=== PATIENT | male | born 1950 | race Caucasian/White ===

== ENCOUNTER → 2017-05-21 | Outpatient (CLI) | payer MEDICARE ==
--- NOTE | 2017-05-21 10:54 | US ---
EXAMINATION TYPE: US venous doppler duplex LE BI DATE OF EXAM: 05/21/2017 10:44 AM COMPARISON: NONE CLINICAL HISTORY: I82.401,I82.402,M79.661,M79.662 LOWER LEG PAIN,DVT. no prev dvt, diana leg pain SIDE PERFORMED: bilateral TECHNIQUE: The lower extremity deep venous system is examined utilizing real time linear array sonog pati with graded compression, doppler sonography and color-flow sonography. VESSELS IMAGED: External Iliac Vein (EIV) Common Femoral Vein Deep Femoral Vein Greater Saphenous Vein * Femoral Vein Popliteal Vein Small Saphenous Vein * Proximal Calf Veins (* superficial vessels) Some exam limitations with compressions bilaterally due to the calcified deep artery that sits just a nterior to the deep vns. Right Leg: neg for DVT Left Leg: neg for DVT IMPRESSION: No evidence for DVT.
== END | disposition home or self-care (01) ==
LOC: RADUSWWP 10:17
PROVIDERS: ATTEND Orthopaedic Surgery
DX: M79.661 Pain in right lower leg (principal); M79.662 Pain in left lower leg
CPT/HCPCS: 93970

== ENCOUNTER → 2017-11-13 | Outpatient (CLI) | payer MEDICARE ==
--- NOTE | 2017-11-14 08:56 | MM ---
Reason for exam: additional evaluation requested from prior study. Last mammogram was performed 3 years and 1 month ago. History: Patient has history of other cancer at age 57. Family history of breast cancer in brother at age 53. Excisional biopsy of the left breast, 2011. Physical Findings: Nurse did not find any significant physical abnormalities on exam. MG 3D Diag Mammo W/Cad SOHAM Bilateral CC and MLO view(s) were taken. Prior study comparison: October 07, 2014, left breast MG diagnostic mammo LT w CAD. December 10, 2013, CAD bilateral diagnostic mammogram. September 16, 2011, CAD bilateral diagnostic mammogram. There are scattered fibroglandular densities. Moderate bilateral gynecomastia. No significant new findings when compared with previous films. These results were verbally communicated with the patient and result sheet given to the patient on 11/13/17. ASSESSMENT: Negative, BI-RAD 1 RECOMMENDATION: Clinical management. Manage patient on a clinical basis. Any follow up can be determined clinically.
== END | disposition home or self-care (01) ==
LOC: RADMAMWWP 13:40
PROVIDERS: ATTEND Internal Medicine
DX: R92.8 Other abnormal and inconclusive findings on diagnostic imaging of breast (principal)
CPT/HCPCS: 77066; G0279

== ENCOUNTER → 2018-06-09 | Outpatient (CLI) | payer MEDICARE ==
--- NOTE | 2018-06-09 15:46 | XR ---
EXAMINATION TYPE: XR chest 2V DATE OF EXAM: 06/09/2018 COMPARISON: 03/01/2016 HISTORY: Shortness of breath TECHNIQUE: Frontal and lateral views of the chest are obtained. FINDINGS: Scattered senescent parenchymal changes noted. Hyperinflation compatible with COPD. No evidence for infiltrate. No evidence for atelectasis. Heart size is stable. Mediastinal structures are stable and grossly unremarkable. No evidence for hilar prominence. Degenerative changes dorsal spine. IMPRESSION: 1. No evidence for acute pulmonary disease.
== END | disposition home or self-care (01) ==
LOC: RADXRMAIN 15:32
PROVIDERS: ATTEND Internal Medicine Critical Care Medicine
DX: J44.9 Chronic obstructive pulmonary disease, unspecified (principal)
CPT/HCPCS: 71046

== ENCOUNTER → 2019-01-04 | Outpatient (CLI) | payer MEDICARE ==
--- NOTE | 2019-01-04 09:59 | MM ---
Reason for exam: clinical finding. Last mammogram was performed 1 year and 2 months ago. History: Patient has history of other cancer at age 57. Family history of breast cancer in brother at age 53. Benign excisional biopsy of the left breast, 2011. Physical Findings: Nurse did not find any significant physical abnormalities on exam. MG 3D Diag Mammo W/Cad SOHAM Bilateral CC and MLO view(s) were taken. Prior study comparison: November 13, 2017, bilateral MG 3d diag mammo w/cad SOHAM. October 07, 2014, left breast MG diagnostic mammo LT w CAD. There are scattered fibroglandular densities. Finding: Architectural distortion in the upper outer quadrant of the left breast consistent with known excisional biopsy. There is no discrete abnormality. These results were verbally communicated with the patient and result sheet given to the patient on 01/04/19. ASSESSMENT: Benign, BI-RAD 2 RECOMMENDATION: Clinical management of both breasts.
== END | disposition home or self-care (01) ==
LOC: RADMAMWWP 08:49
PROVIDERS: ATTEND Family Medicine
DX: N64.4 Mastodynia (principal); Z80.3 Family history of malignant neoplasm of breast
CPT/HCPCS: 77066; G0279; 77062

== ENCOUNTER → 2019-03-05 | Outpatient (CLI) | payer MEDICARE ==
[2019-03-05 10:18] LABS: Basophils # (A) 0.1 k/uL (0-0.2); Basophils % (A) 1 %; Eosinophils # (A) 0.6 k/uL (0-0.7); Eosinophils % (A) 9 %; HCT 45.4 % (39.0-53.0); HGB 14.6 gm/dL (13.0-17.5); Lymphocytes # (A) 1.1 k/uL (1.0-4.8); Lymphocytes % (A) 15 %; MCHC 32.1 g/dL (31.0-37.0); Mean Platelet Volume 6.8; Monocytes # (A) 0.5 k/uL (0-1.0); Monocytes % (A) 7 %; Neutrophils # (A) 4.6 k/uL (1.3-7.7); Neutrophils % (A) 65 %; Platelet Count 269 k/uL (150-450); RBC 5.22 m/uL (4.30-5.90); RDW 14.4 % (11.5-15.5); WBC 7.1 k/uL (3.8-10.6)
[2019-03-05 17:15] LABS: Vitamin D 25 Hydroxy 71.9 ng/mL (30.0-100.0)
[2019-03-05 17:23] LABS: Albumin 4.1 g/dL (3.80-4.90); Albumin/Globulin Ratio 1.78 (1.60-3.17); Anion Gap 7.6 mmol/L (4.00-12.00); Carbon Dioxide 27.4 mmol/L (21.6-31.8); Globulin 2.3 g/dL (1.6-3.3); LDL Cholesterol,Calculated 61.4 mg/dL (0.0-131.0); Potassium 3.9 mmol/L (3.5-5.5); Total Bilirubin 0.3 mg/dL (0.2-1.2); Total Protein 6.4 g/dL (6.2-8.2); VLDL Calculation 26.6 mg/dL (5.00-40.00)
[2019-03-05 17:29] LABS: T4, Free (Free Thyroxine) 1.2 ng/dL (0.80-1.80)
[2019-03-05 19:59] LABS: Hemoglobin A1C 6.1 % (4.0-6.0)
== END ==
LOC: LABWHC1 09:34
PROVIDERS: ATTEND Nurse Practitioner Adult Health
DX: I10 Essential (primary) hypertension (principal); E55.9 Vitamin D deficiency, unspecified; E78.5 Hyperlipidemia, unspecified; E03.9 Hypothyroidism, unspecified; E11.42 Type 2 diabetes mellitus with diabetic polyneuropathy
CPT/HCPCS: 36415; 80053; 80061; 82043; 82306; 82570; 82607; 83036; 84439; 84443; 85025

== ENCOUNTER 2019-08-16 18:05 | Emergency (ER) | payer MEDICARE ==
[2019-08-16] MEDS ORDERED: guaiFENesin-DM 600/30MG 1 EACH TAB.ER.12H PO STA (18:33)
[2019-08-16] MEDS ORDERED: methylPREDNISolone SOD SUCCI 125 MG/2 ML VIAL IM ONE (18:33)
--- NOTE | 2019-08-16 19:14 | ED ---
URI HPI - General Chief Complaint: Upper Respiratory Infection Stated Complaint: congestion/sick-3 weeks Time Seen by Provider: 08/16/19 18:22 Source: patient Mode of arrival: ambulatory Limitations: no limitations - History of Present Illness Initial Comments: 68-year-old male patient with past medical history significant for COPD presents to the emergency department today for evaluation of persistent cough. Patient states that he developed upper respiratory symptoms a couple of weeks ago including sore throat, nasal congestion, and cough. States that his other symptoms resolved however the cough has persisted. Patient states he is coughing up clear sputum. States that when he has coughing episodes he becomes short of breath. Denies any hemoptysis with this. Denies any fever or chills. Patient states he did see someone at urgent care who gave him a prescription for antibiotics and inhaled steroid. States he did one breathing treatment today at home. He denies any current shortness of breath, chest pain, fever, or chills. Patient denies any recent rash, abdominal pain, nausea, vomiting, diarrhea, constipation, back pain, numbness, tingling, dizziness, weakness, hematuria, dysuria, urinary urgency, urinary frequency, headache, visual changes, or any other complaints. - Related Data Home Medications Medication Instructions Recorded Confirmed Aspirin 81 mg PO DAILY 11/28/14 08/16/19 Atorvastatin [Lipitor] 20 mg PO HS 11/28/14 08/16/19 Zolpidem [Ambien] 10 mg PO HS PRN 11/28/14 08/16/19 Albuterol Inhaler [Ventolin Hfa 1 - 2 puff INHALATION RT-Q6H PRN 08/16/19 08/16/19 Inhaler] Albuterol Nebulized [Ventolin 2.5 mg INHALATION RT-Q6H PRN 08/16/19 08/16/19 Nebulized] Beclomethasone Dipropionate [Qvar 2 puff INHALATION RT-BID 08/16/19 08/16/19 40 mcg Redihaler] Doxycycline Hyclate [Vibramycin] 100 mg PO BID 08/16/19 08/16/19 Gabapentin [Neurontin] 300 mg PO TID 08/16/19 08/16/19 Hydrochlorothiazide 12.5 mg PO DAILY 08/16/19 08/16/19 Hydrocodone/Acetaminophen [[place] 1 tab PO Q6H PRN 08/16/19 08/16/19 10-325] Ketoconazole 2% Cream [Nizoral 2%] 1 applic TOPICAL DAILY 08/16/19 08/16/19 Levothyroxine Sodium [Synthroid] 100 mcg PO DAILY 08/16/19 08/16/19 Losartan [Cozaar] 25 mg PO DAILY 08/16/19 08/16/19 Umeclidinium Brm/Vilanterol Tr 1 puff INHALATION RT-DAILY 08/16/19 08/16/19 [Anoro Ellipta 62.5-25 Mcg INH] rOPINIRole HCL [Requip] 1 mg PO HS 08/16/19 08/16/19 Previous Rx's Medication Instructions Recorded Levofloxacin [Levaquin] 750 mg PO DAILY #7 tab 08/16/19 guaiFENesin-DM 600/30MG [Mucinex 1 each PO Q12HR #10 tab.er.12h 08/16/19 Dm] predniSONE 50 mg PO DAILY #5 tablet 08/16/19 Allergies Allergy/AdvReac Type Severity Reaction Status Date / Time No Known Allergies Allergy Verified 08/16/19 18:51 Review of Systems ROS Statement: Those systems with pertinent positive or pertinent negative responses have been documented in the HPI. ROS Other: All systems not noted in ROS Statement are negative. 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 PAYTON. CURRENTLY ON ANTIBIOTICS. History of Any Multi-Drug Resistant Organisms: None Reported Past Surgical History: Breast Surgery, Orthopedic Surgery Additional Past Surgical History / Comment(s): LT FEMORAL BYPASS, AORTAGRAM WITH RUNOFF BLE,TUMOR EXCISED FROM PAROTID GLAND, LT LUNG THORACOTOMY,BILAT KNEE SURGERY,BREAST BIOPSY, COLONOSCOPY, I & D LT AXILLARY ABSCESS 01/2014, recent cataract surgery November Past Anesthesia/Blood Transfusion Reactions: Previous Problems w/ Anesthesia Additional Past Anesthesia/Blood Transfusion Reaction / Comment(s): difficulty waking up once after surgery Past Psychological History: No Psychological Hx Reported Smoking Status: Former smoker General Exam Limitations: no limitations General appearance: alert, in no apparent distress, other (This is a well- developed, well-nourished adult male patient in no acute distress. Vital signs upon presentation are temperature 98.1F, pulse 66, respirations 20, blood pressure 164/75, pulse ox 93% on room air.) Eye exam: Present: normal appearance, PERRL, EOMI. Absent: scleral icterus, conjunctival injection, periorbital swelling ENT exam: Present: normal exam, normal oropharynx, mucous membranes moist, TM's normal bilaterally Respiratory exam: Present: normal lung sounds bilaterally. Absent: respiratory distress, wheezes, rales, rhonchi, stridor Cardiovascular Exam: Present: regular rate, normal rhythm, normal heart sounds. Absent: systolic murmur, diastolic murmur, rubs, gallop, clicks Neurological exam: Present: alert, oriented X3, CN II-XII intact Psychiatric exam: Present: normal affect, normal mood Skin exam: Present: warm, dry, intact, normal color. Absent: rash Course Vital Signs 08/16/19 08/16/19 18:15 20:42 Temperature 98.1 F 97.9 F Pulse Rate 66 57 L Respiratory 20 18 Rate Blood Pressure 164/75 175/85 O2 Sat by Pulse 93 L 94 L Oximetry Medical Decision Making - Medical Decision Making 68-year-old male patient presents to the emergency department today for evaluation of cough and congestion. Patient has been taking doxycycline. Physical examination reveals clear equal lung sounds. Congested cough during exam. X-ray of the chest did reveal lingular infiltrate. He is 93% on room air. Patient was given IM dose of Solu-Medrol here in the emergency department as well as Mucinex. Upon reevaluation patient is resting comfortably with no respiratory distress. I did discuss findings and results with the patient. Did offer admission for IV antibiotics due to failed outpatient treatment. Patient declines requesting outpatient treatment first. We will switch his antibiotic to Levaquin. We'll give prescription for steroids. He is instructed take his home breathing treatments every 4 hours, he does have a rescue inhaler for when he is traveling. He is instructed to follow-up with his primary care physician for recheck in 1-2 days. Return parameters were discussed in great detail. He is to maintain low threshold for return. Both patient and agree with this plan. - Radiology Data Radiology results: report reviewed, image reviewed Two-view x-ray of the chest is obtained. Report was reviewed in its entirety. Impression by Dr. Olivera shows lingular infiltrate. Disposition Clinical Impression: Pneumonia Disposition: HOME SELF-CARE Condition: Good Instructions (If sedation given, give patient instructions): Pneumonia (ED) Additional Instructions: Complete antibiotic and steroid prescription in full. Do home breathing treatments every 4 hours. Take mucinex as needed for symptom relief. Follow up with your primary care physician for recheck in 1-2 days. Return to the emergency department immediately for any new, worsening, or concerning symptoms. Prescriptions: Levofloxacin [Levaquin] 750 mg PO DAILY #7 tab guaiFENesin-DM 600/30MG [Mucinex Dm] 1 each PO Q12HR #10 tab.er.12h predniSONE 50 mg PO DAILY #5 tablet Is patient prescribed a controlled substance at d/c from ED?: No Referrals: None,Stated [Primary Care Provider] - 1-2 days Time of Disposition: 20:45
--- NOTE | 2019-08-16 20:09 | XR ---
EXAMINATION TYPE: XR chest 2V DATE OF EXAM: 08/16/2019 COMPARISON: 06/09/2018 INDICATION: Cough and congestion TECHNIQUE: Frontal and lateral views of the chest are obtained. FINDINGS: The heart size is normal. The pulmonary vasculature is normal. Lingular infiltrate is present. Correlate for pneumonia.. IMPRESSION: 1. Lingular infiltrate. Correlate for pneumonia.
[2019-08-16] MEDS ORDERED: LEVOFLOXACIN 750 MG TAB PO STA (20:39)
[2019-08-16 20:45] VITALS: BP 175/85; PULSE 57; RESP 18; TEMP 97.9
== END 2019-08-16 20:56 | disposition home or self-care (01) ==
LOC: EC 18:05
DX: J18.9 Pneumonia, unspecified organism (principal); E11.9 Type 2 diabetes mellitus without complications; E78.5 Hyperlipidemia, unspecified; E07.9 Disorder of thyroid, unspecified; Z79.82 Long term (current) use of aspirin; Z79.899 Other long term (current) drug therapy; Z79.890 Hormone replacement therapy; Z85.21 Personal history of malignant neoplasm of larynx; Z92.21 Personal history of antineoplastic chemotherapy; Z92.3 Personal history of irradiation; Z98.890 Other specified postprocedural states; Z87.09 Personal history of other diseases of the respiratory system; Z87.891 Personal history of nicotine dependence
CPT/HCPCS: 71046; 96372; 99283; J2930

== ENCOUNTER → 2019-10-18 | Outpatient (CLI) | payer MEDICARE ==
[2019-10-18 12:14] LABS: Basophils # (A) 0.1 k/uL (0-0.2); Basophils % (A) 1 %; Eosinophils # (A) 0.7 k/uL (0-0.7); Eosinophils % (A) 9 %; HGB 15.5 gm/dL (13.0-17.5); Lymphocytes # (A) 1.4 k/uL (1.0-4.8); Lymphocytes % (A) 19 %; MCHC 33.1 g/dL (31.0-37.0); MCV 90.7 fL (80.0-100.0); Mean Platelet Volume 7.3; Monocytes # (A) 0.6 k/uL (0-1.0); Monocytes % (A) 8 %; Neutrophils # (A) 4.6 k/uL (1.3-7.7); Neutrophils % (A) 61 %; Platelet Count 249 k/uL (150-450); RBC 5.18 m/uL (4.30-5.90); RDW 13.3 % (11.5-15.5); WBC 7.5 k/uL (3.8-10.6)
[2019-10-18 12:48] LABS: Erythrocyte Sedimentation Rate 2 mm/hr (0-15)
[2019-10-18 17:10] LABS: ALT 15 U/L (10-49); AST 17 U/L (14-35); African American GFR (CKD) 89.9 (60.0-200.0); Albumin/Globulin Ratio 1.95 (1.60-3.17); Alkaline Phosphatase 60 U/L (41-126); C Reactive Protein <0.4 mg/dL (0.0-0.8); Calcium 9.7 mg/dL (8.7-10.3); Carbon Dioxide 28.8 mmol/L (21.6-31.8); Chloride 106 mmol/L (96-109); Globulin 2.1 g/dL (1.6-3.3); Glucose 94 mg/dL (70-110); Non-African American GFR(CKD) 77.5 (60.0-200.0); Potassium 4.5 mmol/L (3.5-5.5); Sodium 138 mmol/L (135-145); Total Bilirubin 0.5 mg/dL (0.3-1.2); Total Protein 6.2 g/dL (6.2-8.2)
[2019-10-18 18:14] LABS: Hemoglobin A1C 5.9 % (4.0-6.0)
== END | disposition home or self-care (01) ==
LOC: LABWHC1 11:06
PROVIDERS: ATTEND Internal Medicine Infectious Disease
DX: L73.2 Hidradenitis suppurativa (principal)
CPT/HCPCS: 36415; 80053; 83036; 84134; 85025; 85652; 86140

== ENCOUNTER → 2019-12-09 | Outpatient (CLI) | payer MEDICARE ==
[2019-12-09 14:42] LABS: Basophils # (A) 0.1 k/uL (0-0.2); Basophils % (A) 2 %; Eosinophils # (A) 0.4 k/uL (0-0.7); Eosinophils % (A) 6 %; HCT 52.7 % (39.0-53.0); HGB 16.8 gm/dL (13.0-17.5); Lymphocytes # (A) 1.4 k/uL (1.0-4.8); Lymphocytes % (A) 20 %; MCH 29.7 pg (25.0-35.0); MCHC 31.9 g/dL (31.0-37.0); MCV 93.3 fL (80.0-100.0); Mean Platelet Volume 7.9; Monocytes # (A) 0.5 k/uL (0-1.0); Monocytes % (A) 7 %; Neutrophils # (A) 4.3 k/uL (1.3-7.7); Neutrophils % (A) 62 %; Platelet Count 225 k/uL (150-450); RBC 5.64 m/uL (4.30-5.90)
[2019-12-09 14:50] LABS: INR 1.2 (<1.2); Partial Thromboplastin Time 23.6 sec (22.0-30.0); Prothrombin Time 11.7 sec (9.0-12.0)
[2019-12-09 15:40] LABS: Appearance,Urine Clear (Clear); Bilirubin,Urine Negative (Negative); Blood,Urine Negative (Negative); Color,Urine Yellow; Glucose,Urine (UA) Negative (Negative); Ketones,Urine Negative (Negative); Leukocyte Esterase,Urine Negative (Negative); Nitrite,Urine Negative (Negative); Protein,Urine Negative (Negative); Specific Gravity,Urine 1.015 (1.001-1.035); Urobilinogen,Urine <2.0 mg/dL (<2.0)
[2019-12-09 18:33] LABS: African American GFR (CKD) 89.2 (60.0-200.0); Albumin 4.2 g/dL (3.80-4.90); Albumin/Globulin Ratio 1.75 (1.60-3.17); Anion Gap 0.9 mmol/L (4.00-12.00); Calcium 9.3 mg/dL (8.7-10.3); Carbon Dioxide 28.1 mmol/L (21.6-31.8); Globulin 2.4 g/dL (1.6-3.3); Potassium 4.4 mmol/L (3.5-5.5); Total Bilirubin 0.7 mg/dL (0.2-1.2); Total Protein 6.6 g/dL (6.2-8.2)
== END | disposition home or self-care (01) ==
LOC: LABWHC1 13:53
PROVIDERS: ATTEND Family Medicine
DX: Z01.818 Encounter for other preprocedural examination (principal)
CPT/HCPCS: 36415; 80053; 81003; 85025; 85610; 85730

== ENCOUNTER → 2020-10-05 | Outpatient (CLI) | payer MEDICARE ==
[2020-10-05 08:09] LABS: African American GFR (CKD) >90 (>60 ml/min/1.73 sqM); Blood Urea Nitrogen 24 mg/dL (9-20); Non-African American GFR(CKD) 87 (>60 ml/min/1.73 sqM)
--- NOTE | 2020-10-05 08:12 | US ---
EXAMINATION TYPE: US duplex aorta DATE OF EXAM: 10/05/2020 COMPARISON: NONE CLINICAL HISTORY: R04.2 Hemoptysis, Z13.6 Screening for AAA. HTN- on meds. EXAM MEASUREMENTS: Abdominal Aorta: Proximal: 2.8 x 2.3 cm Mid: 2.3 x 2.7 transverse cm Distal: 2.4 x 2.1 cm Bifurcation: Right- 1.1 x 1.1 cm Left- 1.1 x 0.9 cm No AAA visualized at time of scan. IMPRESSION: 1. Mid abdominal aorta has a transverse dimension of 2.7 cm is mildly prominent. No AP fusiform promi nence or aneurysm is evident.
--- NOTE | 2020-10-05 10:33 | CT ---
EXAMINATION TYPE: CT chest w con DATE OF EXAM: 10/05/2020 COMPARISON: Chest CT August 24, 2015 HISTORY: Hemoptysis CT DLP: 670.3 mGycm. Automated Exposure Control for Dose Reduction was Utilized. TECHNIQUE: CT scan of the thorax is performed following with IV Contrast, patient injected with 100 mL of Isovue 300. FINDINGS: LUNGS: Rhqa-of-wvvzpvmu underlying emphysematous changes greatest in the upper lungs is redemonstrate d. Focal scarring slightly thickened in the anterior left mid to lower lung axial images 36 through 4 0 is unchanged from prior study. New Dependent atelectasis left greater than right lower lungs. Patc hy medial right basilar reticulation and fibrosis right middle lobe adjacent to heart border is again seen. New focal 8 x 5mm posterior superior right lower lobe nodule or pleural nodule/plaque axial im age 21. No pleural effusion or pneumothorax seen bilaterally. MEDIASTINUM: There are stable prominent bilateral hilar lymph nodes. No new greater than 1 cm mediast inal lymph nodes. No pericardial effusion is seen. Heart size upper limits of normal. Moderate to s evere three-vessel coronary artery calcification and/or stents. Correlate clinically. No thoracic aor tic aneurysm. OTHER: Subareolar flame-shaped gynecomastia redemonstrated. Mild calcified plaque of the aorta extend s into branch vessels. Retroaortic left renal vein which is normal variant. Mild multilevel spurring in the spine. IMPRESSION: Ucfy-rl-luyssrvq emphysematous change with scattered fibrotic change. 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 Short-term CT fo llow-up in 6 months time is advised to reassess. No thoracic aortic aneurysm. No acute findings are e vident.
== END | disposition home or self-care (01) ==
LOC: RADUSWWP 07:02
PROVIDERS: ATTEND Family Medicine
DX: Z13.6 Encounter for screening for cardiovascular disorders (principal); J43.9 Emphysema, unspecified; R91.1 Solitary pulmonary nodule; R04.2 Hemoptysis
CPT/HCPCS: 82565; 84520; 93979; 71260; 36415; Q9967

== ENCOUNTER → 2020-12-22 | Outpatient (CLI) | payer MEDICARE ==
[2020-12-22 23:21] LABS: Basophils # (A) 0.06 X 10*3/uL (0.00-0.10); Basophils % (A) 0.8 %; Eosinophils # (A) 0.68 X 10*3/uL (0.04-0.35); Eosinophils % (A) 9.6 %; HCT 51.2 % (39.6-50.0); HGB 16.5 g/dL (13.0-17.0); Lymphocytes # (A) 1.06 X 10*3/uL (0.90-5.00); MCH 30.2 pg (27.0-32.0); MCHC 32.2 g/dL (32.0-37.0); MCV 93.8 fL (80.0-97.0); Mean Platelet Volume 10.7 fL (9.5-12.2); Monocytes # (A) 0.72 X 10*3/uL (0.20-1.00); Monocytes % (A) 10.2 %; Neutrophils # (A) 4.54 X 10*3/uL (1.80-7.70); Neutrophils % (A) 64.1 %; Platelet Count 179 X 10*3/uL (140-440); RBC 5.46 X 10*6/uL (4.40-5.60); RDW 13.1 % (11.5-14.5); WBC 7.08 X 10*3/uL (4.50-10.00)
[2020-12-23 02:02] LABS: African American GFR (CKD) 100.6 (60.0-200.0); Albumin 4.3 g/dL (3.80-4.90); Albumin/Globulin Ratio 1.79 (1.60-3.17); Anion Gap 9.9 mmol/L (4.00-12.00); BUN/Creat Ratio 21.11 Ratio (12.00-20.00); Calcium 8.9 mg/dL (8.7-10.3); Carbon Dioxide 25.1 mmol/L (21.6-31.8); Chol/HDL Ratio 3.3; Globulin 2.4 g/dL (1.6-3.3); LDL Cholesterol,Calculated 75.6 mg/dL (0.0-131.0); Non-African American GFR(CKD) 86.8 (60.0-200.0); Potassium 4.4 mmol/L (3.5-5.5); Total Bilirubin 0.6 mg/dL (0.2-1.2); Total Protein 6.7 g/dL (6.2-8.2); VLDL Calculation 23.4 mg/dL (5.00-40.00)
== END | disposition home or self-care (01) ==
LOC: LABWHC1 12:38
PROVIDERS: ATTEND Family Medicine
DX: E11.9 Type 2 diabetes mellitus without complications (principal); I10 Essential (primary) hypertension; M75.02 Adhesive capsulitis of left shoulder; G89.29 Other chronic pain
CPT/HCPCS: 36415; 80053; 80061; 83036; 84443; 85025

== ENCOUNTER → 2021-10-12 | Outpatient (CLI) | payer MEDICARE ==
[2021-10-12 14:38] LABS: African American GFR (CKD) >90 (>60 ml/min/1.73 sqM); Blood Urea Nitrogen 16 mg/dL (9-20); Non-African American GFR(CKD) >90 (>60 ml/min/1.73 sqM)
--- NOTE | 2021-10-14 11:43 | CT ---
EXAMINATION TYPE: CT chest w con CT DLP: 924.7 mGycm, Automated exposure control for dose reduction was used. DATE OF EXAM: 10/12/2021 2:58 PM COMPARISON: CT 10/05/2020. CLINICAL INDICATION:Male, 70 years old with history of R91.1 Lung nodule, h/o lung nodule TECHNIQUE: Multiple axial images were obtained through the chest following the administration of 100 cc of Isovue 300. FINDINGS: LUNGS/ PLEURA: Centrilobular emphysematous changes are moderate. The upper lung posterior pulmonary n odule 8 x 5 mm is stable. A similar 5 mm pulmonary nodule on image 40 the anterior right upper lobe i s present. Similar thickening adjacent to the major fissure on the left likely representing atelectas is/scarring. Excessive fissures are noted within the left upper and right lower lung. There is an inc omplete minor fissure noted. AIRWAY: Patent and unremarkable.. HEART: Prominent for size with three-vessel coronary artery atherosclerosis. MEDIASTINUM: No gross evidence of adenopathy. VASCULATURE: No aortic aneurysm. MUSCULOSKELETAL: Moderate disc degeneration changes are present throughout the thoracolumbar spine. SOFT TISSUES/LYMPH NODES: Unremarkable. LOWER NECK: No significant findings. UPPER ABDOMEN: Is present. IMPRESSION: 1.Moderate emphysematous. 2. Stable 8 x 5 mm and 5 mm upper lobe nodules. Consider the annual lungs cancer screening program if patient meets criteria. 3. Moderate Three-vessel coronary artery atherosclerosis. Consider CT calcium score.
== END | disposition home or self-care (01) ==
LOC: RADCTMAIN 13:47
PROVIDERS: ATTEND Internal Medicine Critical Care Medicine
DX: J43.9 Emphysema, unspecified (principal); R91.8 Other nonspecific abnormal finding of lung field; I25.10 Atherosclerotic heart disease of native coronary artery without angina pectoris
CPT/HCPCS: 82565; 84520; 71260; 36415; Q9967

== ENCOUNTER → 2022-09-05 | Outpatient (CLI) | payer MEDICARE ==
--- NOTE | 2022-09-06 07:41 | MM ---
Reason for Exam: Screening (asymptomatic). Last mammogram was performed 3 year(s) and 8 month(s) ago. Patient History: Other cancer, age 57. 2012, Benign Excisional Biopsy on the left side. Brother had breast cancer, age 53. Prior Study Comparison: 10/07/2014 Left Diagnostic Mammogram, [facility]. 11/13/2017 Bilateral Diagnostic Mammogram, [facility]. 01/04/2019 Bilateral Diagnostic Mammogram, [facility]. Tissue Density: There are scattered fibroglandular densities. Findings: Analyzed By CAD. There is no suspicious group of microcalcifications or new suspicious mass in either breast. Overall Assessment: Negative, BI-RAD 1 Management: Screening Mammogram of both breasts in 1 year. A clinical breast exam by your physician is recommended on an annual basis and results should be correlated with mammographic findings. Electronically signed and approved by: Kg Wisdom M.D. Radiologis
== END | disposition home or self-care (01) ==
LOC: RADMAMWWP 14:34
PROVIDERS: ATTEND Family Medicine
DX: Z12.31 Encounter for screening mammogram for malignant neoplasm of breast (principal); Z80.3 Family history of malignant neoplasm of breast
CPT/HCPCS: 77063; 77067

== ENCOUNTER 2022-11-19 12:36 | Day surgery (SDC) | payer MEDICARE ==
[2022-11-14 16:05] VITALS: BMI 40.7
[~2022-11-19 12:36] MED LIST: LACTATED RINGERS 1,000 ML IV SCH
[2022-11-19 13:06] LABS: Glucose,Whole Blood 112 mg/dL (70-110)
[2022-11-19] MEDS ORDERED: MIDAZOLAM 2 MG/2 ML VIAL ONE (13:08)
[2022-11-19] MEDS ORDERED: ROPIVACAINE 5 MG/ML 20 ML AMPULE ONE (13:08)
[2022-11-19] MEDS ORDERED: methylPREDNISolone ACETATE 40 MG/ML 1 ML VIAL ONE (13:08)
[2022-11-19] MEDS ORDERED: fentaNYL (PF) 50 MCG/ML 2 ML AMP ONE (13:08)
[2022-11-19 13:10] VITALS: TEMP 97
[2022-11-19] MEDS ORDERED: IV FLUID CONTINUATION 900 ML IV ONE (13:37)
--- NOTE | 2022-11-19 13:39 | P.PCN ---
Date of Procedure: 11/19/22 Procedure(s) Performed: Procedure= right iliopsoas bursa steroid injection under ultrasound guidance Preoperative diagnosis= 1-bilateral iliopsoas bursitis. Postoperative diagnosis=Same as preop Diagnosis . Complication = none Condition= stable Anesthesia= moderate sedation with intravenous Versed 1 mg , and fentanyl 50 micrograms . Sedation start time: 1319 Sedation end time : 1333 Indication for the procedure= patient complaining of severe bilateral hip pain, and he is scheduled for bilateral iliopsoas bursa steroid injection, because of risk of the weakness after the block and discussed with the patient the option of doing right side injection will evaluate the response in the future we can do the left side psoas injection Description of the procedure= procedure risk and benefits discussed with the patient, including but not limited, risk of infection and bleeding, and ALLERGIC reaction to the medication and not complete pain relief and patient agreed with the preceding patient taken to the operating room, placed in supine position or standard monitors applied to the patient then after induction of anesthesia back prepped with chlorhexidine 3 times , then under sterile technique using ultrasound guidance, and using 21-gauge [place] , 5 inch needle, advanced under ultrasound in plane technique, and needle placed lateral to the femoral nerve at the location of the right iliopsoas muscle, at the location of the bursae then after negative aspiration total of 10 ML of ropivacaine 0.5% mixed with 10 ML of preservative-free normal saline, total volume was 20 mL mixed with the 40 mg of Depo-Medrol injected after negative aspiration patient tolerated the procedure well without any complications, and he will follow up in the pain clinic in 2 weeks for evaluation
[2022-11-19 13:43] VITALS: RESP 16
[2022-11-19 14:03] VITALS: BP 105/69; PULSE 58
== END 2022-11-19 14:07 | disposition home or self-care (01) ==
LOC: ORPAIN 12:36
PROVIDERS: ATTEND Specialist
DX: M70.71 Other bursitis of hip, right hip (principal); M70.72 Other bursitis of hip, left hip
CPT/HCPCS: 99152

== ENCOUNTER → 2023-09-16 | Outpatient (CLI) | payer MEDICARE ==
--- NOTE | 2023-09-18 00:05 | MM ---
Reason for Exam: Screening (asymptomatic). Last screening mammogram was performed 12 month(s) ago. Patient History: Other cancer, age 57. 2012, Benign Excisional Biopsy on the left side. Brother had breast cancer, age 53. Prior Study Comparison: 11/13/2017 Bilateral Diagnostic Mammogram, [facility]. 01/04/2019 Bilateral Diagnostic Mammogram, [facility]. 09/05/2022 Bilateral MG 3D screening mammo w/cad, [facility]. Tissue Density: There are scattered fibroglandular densities. Findings: Analyzed By CAD. There is chronic nodularity on the left. There is no suspicious group of microcalcifications or new suspicious mass in either breast. Overall Assessment: Benign, BI-RAD 2 Management: Screening Mammogram of both breasts in 1 year. . Patient should continue monthly self-breast exams. A clinical breast exam by your physician is recommended on an annual basis. This exam should not preclude additional follow-up of suspicious palpable abnormalities. Electronically signed and approved by: Nilda Thompson M.D. Radiologist
== END | disposition home or self-care (01) ==
LOC: RADMAMWWP 15:46
PROVIDERS: ATTEND Family Medicine
DX: Z12.31 Encounter for screening mammogram for malignant neoplasm of breast (principal); Z80.3 Family history of malignant neoplasm of breast
CPT/HCPCS: 77063; 77067

== ENCOUNTER 2023-10-23 13:40 | Emergency (ER) | payer MEDICARE ==
--- NOTE | 2023-10-23 16:11 | ED ---
General Adult HPI <Jimmie Odonnell - Last Filed: 10/23/23 16:11> <Marylin Sullivan - Last Filed: 10/24/23 05:18> - General Stated complaint: vomiting Time Seen by Provider: 10/23/23 16:10 - History of Present Illness Initial comments: 72-year-old male presenting to the ED with a chief complaint of upper respiratory symptoms. Patient states the past few days has had some cough, congestion, vomiting, diarrhea. Notes sick contact with his who has similar symptoms. (Jimmie Odonnell) 72-year-old male presenting with chief complaint of cough and shortness of breath. Patient states that since October 19 he has been experiencing cough, congestion, vomiting, diarrhea. His has similar symptoms as well. States that his nausea and vomiting has improved but he is still experiencing a cough and shortness of breath. Patient is a previous smoker. No chest pain. No fevers. No current abdominal pain. (Marylin Sullivan) - Related Data Home Medications Medication Instructions Recorded Confirmed Aspirin 81 mg PO DAILY 11/28/14 12/11/22 Atorvastatin [Lipitor] 20 mg PO HS 11/28/14 12/11/22 Albuterol Inhaler [Ventolin Hfa 1 - 2 puff INHALATION RT-Q6H PRN 08/16/19 12/11/22 Inhaler] Albuterol Nebulized [Ventolin 2.5 mg INHALATION RT-Q6H PRN 08/16/19 12/11/22 Nebulized] Gabapentin [Neurontin] 300 mg PO TID 08/16/19 12/11/22 Hydrocodone/Acetaminophen [[place] 1 tab PO Q6H PRN 08/16/19 12/11/22 10-325] Levothyroxine Sodium [Synthroid] 100 mcg PO DAILY 08/16/19 12/11/22 Losartan [Cozaar] 25 mg PO DAILY 08/16/19 12/11/22 hydroCHLOROthiazide 12.5 mg PO DAILY 08/16/19 12/11/22 rOPINIRole HCL [Requip] 1 mg PO HS 08/16/19 12/11/22 Fluticasone/Umeclidin/Vilanter 1 inhalation INHALATION DAILY 11/14/22 12/11/22 [Trelegy Ellipta 100-62.5-25] Triamcinolone 0.1% Cream [Kenalog 1 applicatio TOPICAL BID PRN 11/14/22 12/11/22 0.1% Cream] Previous Rx's Medication Instructions Recorded diazePAM [Valium] 5 mg PO BID PRN 1 Days #2 tab 12/16/22 Albuterol Sulfate [Albuterol 1 puff PO Q4-6H PRN #8.5 gm 10/23/23 Sulfate Hfa] Azithromycin [Zithromax Z Pack] 1 tab PO DIRECTED #6 tab 10/23/23 predniSONE [Deltasone] 60 mg PO DAILY 5 Days #15 tab 10/23/23 Allergies Allergy/AdvReac Type Severity Reaction Status Date / Time No Known Allergies Allergy Verified 10/23/23 17:01 Review of Systems ROS Other: All systems not noted in ROS Statement are negative. <Jimmie Odonnell - Last Filed: 10/23/23 16:11> ROS Other: All systems not noted in ROS Statement are negative. <Marylin Sullivan - Last Filed: 10/24/23 05:18> ROS Statement: Those systems with pertinent positive or pertinent negative responses have been documented in the HPI. 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 History of Any Multi-Drug Resistant Organisms: None Reported Past Surgical History: Breast Surgery, Orthopedic Surgery Additional Past Surgical History / Comment(s): LT FEMORAL BYPASS, AORTAGRAM WITH RUNOFF BLE,TUMOR EXCISED FROM PAROTID GLAND, LT LUNG THORACOTOMY,BILAT KNEE SURGERY,BREAST BIOPSY, COLONOSCOPY, I & D LT AXILLARY ABSCESS 01/2014, diana cataract surg,diana hips replaced Past Anesthesia/Blood Transfusion Reactions: Previous Problems w/ Anesthesia Additional Past Anesthesia/Blood Transfusion Reaction / Comment(s): difficulty waking up once after surgery Smoking Status: Former smoker - Past Family History Mother Family Medical History: No Reported History Sister(s) Family Medical History: Cancer Additional Family Medical History / Comment(s): lung,brain Brother(s) Family Medical History: Cancer Additional Family Medical History / Comment(s): breast, brain <Jimmie Odonnell - Last Filed: 10/23/23 16:11> General Exam <Jimmie Odonnell - Last Filed: 10/23/23 16:11> Limitations: no limitations General appearance: alert, in no apparent distress Head exam: Present: atraumatic, normocephalic Eye exam: Present: normal appearance Neck exam: Present: normal inspection Respiratory exam: Present: wheezes. Absent: respiratory distress, rales, rhonchi, stridor Cardiovascular Exam: Present: regular rate, normal rhythm, normal heart sounds. Absent: systolic murmur, diastolic murmur, rubs, gallop, clicks Neurological exam: Present: alert, oriented X3 Psychiatric exam: Present: normal affect, normal mood Skin exam: Present: warm, dry <Marylin Sullivan - Last Filed: 10/24/23 05:18> - General Exam Comments Initial Comments: Visual Physical Exam Vital signs reviewed General: Well-appearing, nontoxic, no acute distress. Head: Normocephalic, atraumatic Eyes: PERRLA, EOMI ENT: Airway patent Chest: Nonlabored breathing Skin: No visual rash, normal skin tone Neuro: Alert and oriented 3 Musculoskeletal: No gross abnormalities (Jimmie Odonnell) Course Vital Signs 10/23/23 10/23/23 10/23/23 16:57 22:37 22:47 Temperature 98.8 F Pulse Rate 52 L 49 L 57 L Respiratory 20 Rate Blood Pressure 148/77 O2 Sat by Pulse 91 L Oximetry Medical Decision Making <Jimmie Odonnell - Last Filed: 10/23/23 16:11> - Lab Data Result diagrams: 10/23/23 20:44 10/23/23 20:44 <Marylin Sullivan - Last Filed: 10/24/23 05:18> - Medical Decision Making Quicknote portion performed. Signed Jimmie Odonnell PA-C (Jimmie Odonnell) Was pt. sent in by a medical professional or institution ([facility], PRODUCTION SUPPORT DEVELOPER, urgent care, hospital, or [facility]...) When possible be specific @ -No Did you speak to anyone other than the patient for history (EMS, parent, family, police, friend...)? What history was obtained from this source @ -No Did you review nursing and triage notes (agree or disagree)? Why? @ -I reviewed and agree with nursing and triage notes Were old charts reviewed (outside hosp., previous admission, EMS record, old EKG, old radiological studies, urgent care reports/EKG's, [facility] records)? Report findings @ -No old charts were reviewed Differential Diagnosis (chest pain, altered mental status, abdominal pain women, abdominal pain men, vaginal bleeding, weakness, fever, dyspnea, syncope, headache, dizziness, GI bleed, back pain, seizure, CVA, palpatations, mental health, musculoskeletal)? @ -MDM Differential Dyspnea: Coronary syndrome, arrhythmia, tamponade, asthma, COPD, pulmonary embolism, p neumonia, pneumothorax, pulmonary effusion, anaphylaxis, diabetic ketoacidosis, flailed chest, pulmonary contusion, diaphragmatic rupture, anemia, neuromuscular this is not meant to be an all-inclusive list. EKG interpreted by me (3pts min.). @ -As above X-rays interpreted by me (1pt min.). @ -COPD with patchy interstitial infiltrates in the middle and lower lungs. Consider atypical for Covid pneumonia. CT interpreted by me (1pt min.). @ -None done U/S interpreted by me (1pt. min.). @ -None done What testing was considered but not performed or refused? (CT, X-rays, U/S, labs)? Why? @ -None What meds were considered but not given or refused? Why? @ -None Did you discuss the management of the patient with other professionals (professionals i.e. , PA, PRODUCTION SUPPORT DEVELOPER, lab, RT, psych nurse, social staff worker, control valve mechanic, teacher, bank secrecy act officer, porter sample case)? Give summary @ -No Was smoking cessation discussed for >3mins.? @ -No Was critical care preformed (if so, how long)? @ -No Were there social determinants of health that impacted care today? How? (Homelessness, low income, unemployed, alcoholism, drug addiction, transportation, low edu. Level, literacy, decrease access to med. care, skilled nursing, rehab)? @ -No Was there de-escalation of care discussed even if they declined (Discuss DNR or withdrawal of care, Hospice)? DNR status @ -No What co-morbidities impacted this encounter? (DM, HTN, Smoking, COPD, CAD, Cancer, CVA, ARF, Chemo, Hep., AIDS, mental health diagnosis, sleep apnea, morbid obesity)? @ -None Was patient admitted / discharged? Hospital course, mention meds given and route, prescriptions, significant lab abnormalities, going to OR and other pertinent info. @ -72-year-old male presenting with chief complaint of cough and shortness of breath. Patient was experiencing nausea and vomiting which has since subsided. His is also sick. On physical exam wheezes are heard on auscultation. Patient is positive for influenza A. Lab work is grossly unremarkable. Chest x-ray is consistent with COPD and atypical/viral pneumonia. He is given Solu- Medrol and DuoNeb breathing treatment. On reassessment wheezing has improved. On my assessment the patient has a pulse ox of 93% on room air. I offered the patient admission which he declined. He'll be treated for COPD exacerbation with prednisone, albuterol, and azithromycin. Follow-up with PCP. Report back to ER with any new or worsening symptoms. Discussed return parameters and answered all questions. Patient conveyed verbal understanding and agreed to the plan. I discussed this case in detail with my attending Dr. Lora Undiagnosed new problem with uncertain prognosis? @ -No Drug Therapy requiring intensive monitoring for toxicity (Heparin, Nitro, Insulin, Cardizem)? @ -No Were any procedures done? @ -No Diagnosis/symptom? @ -Influenza A Acute, or Chronic, or Acute on Chronic? @ -acute Uncomplicated (without systemic symptoms) or Complicated (systemic symptoms)? @ -Complicated Side effects of treatment? @ -No Exacerbation, Progression, or Severe Exacerbation? @ -No Poses a threat to life or bodily function? How? (Chest pain, [place], [place], pneumonia, PE, COPD, DKA, ARF, appy, cholecystitis, CVA, Diverticulitis, Homicidal, Suicidal, threat to staff... and all critical care pts) @ -No Diagnosis/symptom? @COPD exacerbation Acute, or Chronic, or Acute on Chronic? @Acute Uncomplicated (without systemic symptoms) or Complicated (systemic symptoms)? @Complicated Side effects of treatment? @ none Exacerbation, Progression, or Severe Exacerbation] @ no Poses a threat to life or bodily function? @Low likelihood (Marylin Sullivan) - Lab Data Lab Results 12/28/23 12/28/23 12/28/23 Range/Units 20:44 20:44 20:44 WBC 5.2 (3.8-10.6) k/uL RBC 5.45 (4.30-5.90) m/uL Hgb 17.0 (13.0-17.5) gm/dL Hct 51.0 (39.0-53.0) % MCV 93.5 (80.0-100.0) fL MCH 31.1 (25.0-35.0) pg MCHC 33.3 (31.0-37.0) g/dL RDW 12.4 (11.5-15.5) % Plt Count 179 (150-450) k/uL MPV 7.3 Neutrophils % 65 % Lymphocytes % 19 % Monocytes % 9 % Eosinophils % 2 % Basophils % 1 % Neutrophils # 3.4 (1.3-7.7) k/uL Lymphocytes # 1.0 (1.0-4.8) k/uL Monocytes # 0.5 (0-1.0) k/uL Eosinophils # 0.1 (0-0.7) k/uL Basophils # 0.0 (0-0.2) k/uL Sodium 141 (137-145) mmol/L Potassium 3.9 (3.5-5.1) mmol/L Chloride 101 (98-107) mmol/L Carbon Dioxide 27 (22-30) mmol/L Anion Gap 13 mmol/L BUN 20 (9-20) mg/dL Creatinine 0.86 (0.66-1.25) mg/dL Est GFR (CKD-EPI)AfAm >90 (>60 ml/min/1.73 sqM) Est GFR (CKD-EPI)NonAf 87 (>60 ml/min/1.73 sqM) Glucose 95 (74-99) mg/dL Calcium 8.8 (8.4-10.2) mg/dL Total Bilirubin 1.1 (0.2-1.3) mg/dL AST 38 (17-59) U/L ALT 22 (4-49) U/L Alkaline Phosphatase 57 (38-126) U/L Total Protein 7.4 (6.3-8.2) g/dL Albumin 4.2 (3.5-5.0) g/dL Influenza Type A (PCR) Detected A (Not Detectd) Influenza Type B (PCR) Not Detected (Not Detectd) RSV (PCR) Not Detected (Not Detectd) SARS-CoV-2 (PCR) Not Detected (Not Detectd) Disposition <Jimmie Odonnell - Last Filed: 10/23/23 16:11> Is patient prescribed a controlled substance at d/c from ED?: No Time of Disposition: 23:52 <Marylin Sullivan - Last Filed: 10/24/23 05:18> Clinical Impression: COPD (chronic obstructive pulmonary disease), Influenza A Disposition: HOME SELF-CARE Condition: Fair Instructions (If sedation given, give patient instructions): Influenza (ED), COPD (Chronic Obstructive Pulmonary Disease) (ED) Additional Instructions: Follow-up with PCP. Report back to ER with any new or worsening symptoms. Prescriptions: Albuterol Sulfate [Albuterol Sulfate Hfa] 1 puff PO Q4-6H PRN #8.5 gm PRN Reason: Shortness Of Breath predniSONE [Deltasone] 60 mg PO DAILY 5 Days #15 tab Azithromycin [Zithromax Z Pack] 1 tab PO DIRECTED #6 tab Referrals: aCron Alejandro DO [Primary Care Provider] - 1-2 days
[2023-10-23 17:20] VITALS: BP 148/77; RESP 20; TEMP 98.8
--- NOTE | 2023-10-23 18:52 | XR ---
EXAMINATION TYPE: XR chest 2V DATE OF EXAM: 10/23/2023 COMPARISON: 08/16/2019 HISTORY: 72-year-old male cough and shortness of breath, fever, rule out pneumonia TECHNIQUE: PA and lateral views FINDINGS: Normal size. Patchy interstitial changes in the mid and lower lungs. Relative lucencies with hyperinf lation. No pleural effusion. IMPRESSION: COPD with patchy interstitial infiltrates in the mid and lower lungs. Consider atypical or COVID pneu monia.
[2023-10-23 20:54] LABS: Basophils % (A) 1 %; Eosinophils # (A) 0.1 k/uL (0-0.7); Eosinophils % (A) 2 %; Lymphocytes % (A) 19 %; MCH 31.1 pg (25.0-35.0); MCHC 33.3 g/dL (31.0-37.0); MCV 93.5 fL (80.0-100.0); Mean Platelet Volume 7.3; Monocytes # (A) 0.5 k/uL (0-1.0); Monocytes % (A) 9 %; Neutrophils # (A) 3.4 k/uL (1.3-7.7); Neutrophils % (A) 65 %; Platelet Count 179 k/uL (150-450); RBC 5.45 m/uL (4.30-5.90); RDW 12.4 % (11.5-15.5); WBC 5.2 k/uL (3.8-10.6)
[2023-10-23 21:09] LABS: ALT 22 U/L (4-49); AST 38 U/L (17-59); African American GFR (CKD) >90 (>60 ml/min/1.73 sqM); Albumin 4.2 g/dL (3.5-5.0); Alkaline Phosphatase 57 U/L (38-126); Anion Gap 13 mmol/L; Blood Urea Nitrogen 20 mg/dL (9-20); Calcium 8.8 mg/dL (8.4-10.2); Carbon Dioxide 27 mmol/L (22-30); Chloride 101 mmol/L (98-107); Glucose 95 mg/dL (74-99); Non-African American GFR(CKD) 87 (>60 ml/min/1.73 sqM); Potassium 3.9 mmol/L (3.5-5.1); Sodium 141 mmol/L (137-145); Total Bilirubin 1.1 mg/dL (0.2-1.3); Total Protein 7.4 g/dL (6.3-8.2)
[2023-10-23] MEDS ORDERED: IPRATROPIUM-ALBUTEROL 3 ML NEB INHALATION STA (21:57)
[2023-10-23] MEDS ORDERED: methylPREDNISolone SOD SUCCI 125 MG/2 ML VIAL IM ONE (21:57)
[2023-10-23 22:55] VITALS: PULSE 57
== END 2023-10-24 00:17 | disposition home or self-care (01) ==
LOC: EC 13:40
DX: J10.1 Influenza due to other identified influenza virus with other respiratory manifestations (principal); J44.9 Chronic obstructive pulmonary disease, unspecified; I10 Essential (primary) hypertension; E78.5 Hyperlipidemia, unspecified; E11.36 Type 2 diabetes mellitus with diabetic cataract; E07.9 Disorder of thyroid, unspecified; Z79.890 Hormone replacement therapy; Z79.82 Long term (current) use of aspirin; Z79.899 Other long term (current) drug therapy; Z20.822 Contact with and (suspected) exposure to COVID-19; Z87.891 Personal history of nicotine dependence
CPT/HCPCS: 36415; 94640; 80053; 85025; 87636; 71046; 99284; 96372; J2930

== ENCOUNTER → 2023-11-13 | Outpatient (CLI) | payer MEDICARE ==
[2023-11-13 14:25] LABS: African American GFR (CKD) >90 (>60 ml/min/1.73 sqM); Blood Urea Nitrogen 19 mg/dL (9-20); Non-African American GFR(CKD) 86 (>60 ml/min/1.73 sqM)
--- NOTE | 2023-11-13 15:43 | CT ---
EXAMINATION TYPE: CT chest w con DATE OF EXAM: 11/13/2023 COMPARISON: Prior chest CT October 12, 2021 and older studies HISTORY: solitary pulmonary nodule CT DLP: 949.5 mGycm. Automated Exposure Control for Dose Reduction was Utilized. TECHNIQUE: CT scan of the thorax is performed following with IV Contrast, patient injected with 100m l mL of Isovue 300. FINDINGS: LUNGS: Moderate underlying emphysematous changes greatest in the upper lungs is redemonstrated. Focal scarring slightly thickened in the anterior left mid to lower lung axial images 39 through 42 is unc hanged from prior study. Persistent Dependent atelectasis left greater than right lower lungs. Patchy medial right basilar reticulation and fibrosis right middle lobe adjacent to heart border is again s een. Stable focal 8 x 5mm posterior superior right lower lobe nodule or pleural nodule/plaque axial i mage 22. No pleural effusion or pneumothorax seen bilaterally. MEDIASTINUM: There are stable prominent bilateral hilar lymph nodes. No new or enlarging greater than 1 cm mediastinal lymph nodes. No pericardial effusion is seen. Heart size upper limits of normal. Moderate to severe three-vessel coronary artery calcification and/or stents. Correlate clinically. No thoracic aortic aneurysm. Filling defects consistent with embolism in the left lower lobe pulmonary artery having segmental extension. OTHER: Subareolar flame-shaped gynecomastia redemonstrated. Mild calcified plaque of the aorta extend s into branch vessels. Retroaortic left renal vein which is normal variant. Mild multilevel spurring in the spine. IMPRESSION: Moderate emphysematous change with scattered fibrotic change. No new or enlarging masses or nodules. Left lower lobe acute pulmonary embolism is now present. Critical results communicated to ordering advisory software engineer via telephone at time of dictation.
== END | disposition home or self-care (01) ==
LOC: RADCTMAIN 13:44
PROVIDERS: ATTEND Internal Medicine Critical Care Medicine
DX: J43.9 Emphysema, unspecified (principal); J84.10 Pulmonary fibrosis, unspecified; R91.1 Solitary pulmonary nodule
CPT/HCPCS: 82565; 84520; 71260; 36415; Q9967

== ENCOUNTER 2024-01-29 17:26 | Emergency (ER) | payer MEDICARE ==
--- NOTE | 2024-01-29 17:52 | ED ---
Abdominal Pain HPI - General Chief Complaint: Abdominal Pain Stated Complaint: Abdominal Pain Time Seen by Provider: 01/29/24 17:48 Source: patient, RN notes reviewed Mode of arrival: ambulatory Limitations: no limitations - History of Present Illness Initial Comments: 73-year-old male presents emergency department chief complaint of abdominal pain, diarrhea and nausea over the past 4 days. States that the pain is localized to the left lower abdomen and is intermittent in nature. He denies dyschezia, hematochezia, dysuria, fevers, chills. Patient denies previous abdominal surgeries. Has not tried to take anything [id number] at home for relief. - Related Data Home Medications Medication Instructions Recorded Confirmed Aspirin 81 mg PO DAILY 11/28/14 12/11/22 Atorvastatin [Lipitor] 20 mg PO HS 11/28/14 12/11/22 Albuterol Inhaler [Ventolin Hfa 1 - 2 puff INHALATION RT-Q6H PRN 08/16/19 12/11/22 Inhaler] Albuterol Nebulized [Ventolin 2.5 mg INHALATION RT-Q6H PRN 08/16/19 12/11/22 Nebulized] Gabapentin [Neurontin] 300 mg PO TID 08/16/19 12/11/22 Hydrocodone/Acetaminophen [[place] 1 tab PO Q6H PRN 08/16/19 12/11/22 10-325] Levothyroxine Sodium [Synthroid] 100 mcg PO DAILY 08/16/19 12/11/22 Losartan [Cozaar] 25 mg PO DAILY 08/16/19 12/11/22 hydroCHLOROthiazide 12.5 mg PO DAILY 08/16/19 12/11/22 rOPINIRole HCL [Requip] 1 mg PO HS 08/16/19 12/11/22 Fluticasone/Umeclidin/Vilanter 1 inhalation INHALATION DAILY 11/14/22 12/11/22 [Trelegy Ellipta 100-62.5-25] Triamcinolone 0.1% Cream [Kenalog 1 applicatio TOPICAL BID PRN 11/14/22 12/11/22 0.1% Cream] Previous Rx's Medication Instructions Recorded diazePAM [Valium] 5 mg PO BID PRN 1 Days #2 tab 12/16/22 Albuterol Sulfate [Albuterol 1 puff PO Q4-6H PRN #8.5 gm 10/23/23 Sulfate Hfa] Azithromycin [Zithromax Z Pack] 1 tab PO DIRECTED #6 tab 10/23/23 predniSONE [Deltasone] 60 mg PO DAILY 5 Days #15 tab 10/23/23 Amoxic-Pot Clav 875-125Mg 1 tab PO Q12HR #10 tab 01/29/24 [Augmentin 875-125] metroNIDAZOLE [Flagyl] 500 mg PO TID #15 tab 01/29/24 Allergies Allergy/AdvReac Type Severity Reaction Status Date / Time No Known Allergies Allergy Verified 01/29/24 17:33 Review of Systems ROS Statement: Those systems with pertinent positive or pertinent negative responses have been documented in the HPI. ROS Other: All systems not noted in ROS Statement are negative. 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 History of Any Multi-Drug Resistant Organisms: None Reported Past Surgical History: Breast Surgery, Orthopedic Surgery Additional Past Surgical History / Comment(s): LT FEMORAL BYPASS, AORTAGRAM WITH RUNOFF BLE,TUMOR EXCISED FROM PAROTID GLAND, LT LUNG THORACOTOMY,BILAT KNEE SURGERY,BREAST BIOPSY, COLONOSCOPY, I & D LT AXILLARY ABSCESS 01/2014, diana cataract surg,diana hips replaced Past Anesthesia/Blood Transfusion Reactions: Previous Problems w/ Anesthesia Additional Past Anesthesia/Blood Transfusion Reaction / Comment(s): difficulty waking up once after surgery Past Psychological History: No Psychological Hx Reported Smoking Status: Former smoker Past Alcohol Use History: None Reported Past Drug Use History: None Reported - Past Family History Mother Family Medical History: No Reported History Sister(s) Family Medical History: Cancer Additional Family Medical History / Comment(s): lung,brain Brother(s) Family Medical History: Cancer Additional Family Medical History / Comment(s): breast, brain General Exam Limitations: no limitations General appearance: alert, in no apparent distress Head exam: Present: atraumatic, normocephalic, normal inspection Eye exam: Present: normal appearance, PERRL, EOMI. Absent: scleral icterus, conjunctival injection, periorbital swelling ENT exam: Present: normal exam, mucous membranes moist Neck exam: Present: normal inspection. Absent: tenderness, meningismus, lymphadenopathy Respiratory exam: Present: normal lung sounds bilaterally. Absent: respiratory distress, wheezes, rales, rhonchi, stridor Cardiovascular Exam: Present: regular rate, normal rhythm, normal heart sounds. Absent: systolic murmur, diastolic murmur, rubs, gallop, clicks GI/Abdominal exam: Present: soft, tenderness (LLQ), normal bowel sounds. Absent: distended, guarding, rebound Extremities exam: Present: normal inspection, full ROM, normal capillary refill. Absent: tenderness, pedal edema, joint swelling, calf tenderness Back exam: Present: normal inspection Neurological exam: Present: alert, oriented X3, CN II-XII intact Psychiatric exam: Present: normal affect, normal mood Skin exam: Present: warm, dry, intact, normal color. Absent: rash Course Vital Signs 01/29/24 01/29/24 17:32 20:32 Temperature 98.5 F 98.2 F Pulse Rate 60 50 L Respiratory 20 18 Rate Blood Pressure 135/77 144/82 O2 Sat by Pulse 99 94 L Oximetry Medical Decision Making - Medical Decision Making Was pt. sent in by a medical professional or institution (, PA, LAMP CLEANER, urgent care, hospital, or correction...) When possible be specific @ -No Did you speak to anyone other than the patient for history (EMS, parent, family, police, friend...)? What history was obtained from this source @ -No Did you review nursing and triage notes (agree or disagree)? Why? @ -I reviewed and agree with nursing and triage notes Were old charts reviewed (outside hosp., previous admission, EMS record, old EKG, old radiological studies, urgent care reports/EKG's, correction records)? Report findings @ -No old charts were reviewed Differential Diagnosis (chest pain, altered mental status, abdominal pain women, abdominal pain men, vaginal bleeding, weakness, fever, dyspnea, syncope, headache, dizziness, GI bleed, back pain, seizure, CVA, palpatations, mental health, musculoskeletal)? @ -Differential Abdominal Pain Men: Appendicitis, cholecystitis, diverticulosis, ischemic bowel, pancreatitis, hepatitis, UTI, gastroenteritis, AAA, incarcerated hernia, bowel obstruction, constipation, inflammatory bowel, hepatitis, peptic ulcer disease, splenic i nfarction, perforated viscus, testicular torsion, this is not meant to be an all-inclusive list EKG interpreted by me (3pts min.). @ -None X-rays interpreted by me (1pt min.). @ -None done CT interpreted by me (1pt min.). @ -CT abdomen and pelvis with contrast reveals Mild to moderate diverticulitis involving the distalmost descending colon U/S interpreted by me (1pt. min.). @ -None done What testing was considered but not performed or refused? (CT, X-rays, U/S, labs)? Why? @ -None What meds were considered but not given or refused? Why? @ -None Did you discuss the management of the patient with other professionals (professionals i.e. , PA, LAMP CLEANER, lab, RT, psych nurse, social worker masters, contract runner, teacher, coastal/harbor defense officer, manager of case)? Give summary @ -No Was smoking cessation discussed for >3mins.? @ -No Was critical care preformed (if so, how long)? @ -No Were there social determinants of health that impacted care today? How? (Homelessness, low income, unemployed, alcoholism, drug addiction, transportation, low edu. Level, literacy, decrease access to med. care, skilled nursing, rehab)? @ -No Was there de-escalation of care discussed even if they declined (Discuss DNR or withdrawal of care, Hospice)? DNR status @ -No What co-morbidities impacted this encounter? (DM, HTN, Smoking, COPD, CAD, Cancer, CVA, ARF, Chemo, Hep., AIDS, mental health diagnosis, sleep apnea, morbi d obesity)? @ -None Was patient admitted / discharged? Hospital course, mention meds given and route , prescriptions, significant lab abnormalities, going to OR and other pertinent info. @ -Discharged. 73-year-old male with left lower quadrant abdominal pain. Physical exam remarkable for tenderness to palpation in the left lower quadrant, non rigid and equal bowel sounds heard. Laboratory evaluation unremarkable for signs of infection or electrolyte abnormalities. CT results revealed divertic ulitis of the descending colon. Patient will be discharged home with antibiotics instructed to complete full course, strict return parameters were discussed. Also inform patient. Recommend follow-up colonoscopy for visualization of mucosa recommended. I discussed this case with my attending Dr. Abdi is agreeable with plan and for discharge Undiagnosed new problem with uncertain prognosis? @ -No Drug Therapy requiring intensive monitoring for toxicity (Heparin, Nitro, Insulin, Cardizem)? @ -No Were any procedures done? @ -No Diagnosis/symptom? @ -Diverticulitis Acute, or Chronic, or Acute on Chronic? @ -acute Uncomplicated (without systemic symptoms) or Complicated (systemic symptoms)? @ -uncomplicated Side effects of treatment? @ -No Exacerbation, Progression, or Severe Exacerbation? @ -No Poses a threat to life or bodily function? How? (Chest pain, [place], [place], pneumonia, PE, COPD, DKA, ARF, appy, cholecystitis, CVA, Diverticulitis, Homicidal, Suicidal, threat to staff... and all critical care pts) @ -No - Lab Data Result diagrams: 01/29/24 18:08 01/29/24 18:50 Lab Results 01/29/24 01/29/24 01/29/24 Range/Units 18:08 18:08 18:08 WBC 7.8 (3.8-10.6) k/uL RBC 5.40 (4.30-5.90) m/uL Hgb 16.6 (13.0-17.5) gm/dL Hct 51.8 (39.0-53.0) % MCV 96.0 (80.0-100.0) fL MCH 30.7 (25.0-35.0) pg MCHC 32.0 (31.0-37.0) g/dL RDW 13.1 (11.5-15.5) % Plt Count 172 (150-450) k/uL MPV 8.5 Neutrophils % 67 % Lymphocytes % 15 % Monocytes % 11 % Eosinophils % 2 % Basophils % 1 % Neutrophils # 5.3 (1.3-7.7) k/uL Lymphocytes # 1.2 (1.0-4.8) k/uL Monocytes # 0.8 (0-1.0) k/uL Eosinophils # 0.2 (0-0.7) k/uL Basophils # 0.1 (0-0.2) k/uL PT (10.0-12.5) sec INR (<1.2) APTT (22.0-30.0) sec Sodium (137-145) mmol/L Potassium (3.5-5.1) mmol/L Chloride (98-107) mmol/L Carbon Dioxide (22-30) mmol/L Anion Gap mmol/L BUN (9-20) mg/dL Creatinine (0.66-1.25) mg/dL Est GFR (CKD-EPI)AfAm (>60 ml/min/1.73 sqM) Est GFR (CKD-EPI)NonAf (>60 ml/min/1.73 sqM) Glucose (74-99) mg/dL Plasma Lactic Acid Krishna 1.6 (0.7-2.0) mmol/L Calcium (8.4-10.2) mg/dL Magnesium (1.6-2.3) mg/dL Total Bilirubin (0.2-1.3) mg/dL AST (17-59) U/L ALT (4-49) U/L Alkaline Phosphatase (38-126) U/L Total Protein (6.3-8.2) g/dL Albumin (3.5-5.0) g/dL Amylase (30-110) U/L Lipase (23-300) U/L Urine Color Yellow Urine Appearance Clear (Clear) Urine pH 5.5 (5.0-8.0) Ur Specific [place] 1.028 (1.001-1.035) Urine Protein Trace H (Negative) Urine Glucose (UA) Negative (Negative) Urine Ketones Negative (Negative) Urine Blood Negative (Negative) Urine Nitrite Negative (Negative) Urine Bilirubin Negative (Negative) Urine Urobilinogen <2.0 (<2.0) mg/dL Ur Leukocyte Esterase Negative (Negative) Influenza Type A (PCR) (Not Detectd) Influenza Type B (PCR) (Not Detectd) RSV (PCR) (Not Detectd) SARS-CoV-2 (PCR) (Not Detectd) 01/29/24 01/29/24 01/29/24 Range/Units 18:08 18:08 18:50 WBC (3.8-10.6) k/uL RBC (4.30-5.90) m/uL Hgb (13.0-17.5) gm/dL Hct (39.0-53.0) % MCV (80.0-100.0) fL MCH (25.0-35.0) pg MCHC (31.0-37.0) g/dL RDW (11.5-15.5) % Plt Count (150-450) k/uL MPV Neutrophils % % Lymphocytes % % Monocytes % % Eosinophils % % Basophils % % Neutrophils # (1.3-7.7) k/uL Lymphocytes # (1.0-4.8) k/uL Monocytes # (0-1.0) k/uL Eosinophils # (0-0.7) k/uL Basophils # (0-0.2) k/uL PT 12.3 (10.0-12.5) sec INR 1.2 H (<1.2) APTT 25.1 (22.0-30.0) sec Sodium 140 (137-145) mmol/L Potassium 3.7 (3.5-5.1) mmol/L Chloride 108 H (98-107) mmol/L Carbon Dioxide 27 (22-30) mmol/L Anion Gap 5 mmol/L BUN 21 H (9-20) mg/dL Creatinine 0.86 (0.66-1.25) mg/dL Est GFR (CKD-EPI)AfAm >90 (>60 ml/min/1.73 sqM) Est GFR (CKD-EPI)NonAf 87 (>60 ml/min/1.73 sqM) Glucose 104 H (74-99) mg/dL Plasma Lactic Acid Krishna (0.7-2.0) mmol/L Calcium 8.1 L (8.4-10.2) mg/dL Magnesium 1.8 (1.6-2.3) mg/dL Total Bilirubin 0.7 (0.2-1.3) mg/dL AST 20 (17-59) U/L ALT 13 (4-49) U/L Alkaline Phosphatase 50 (38-126) U/L Total Protein 6.0 L (6.3-8.2) g/dL Albumin 3.3 L (3.5-5.0) g/dL Amylase 43 (30-110) U/L Lipase 59 (23-300) U/L Urine Color Urine Appearance (Clear) Urine pH (5.0-8.0) Ur Specific [place] (1.001-1.035) Urine Protein (Negative) Urine Glucose (UA) (Negative) Urine Ketones (Negative) Urine Blood (Negative) Urine Nitrite (Negative) Urine Bilirubin (Negative) Urine Urobilinogen (<2.0) mg/dL Ur Leukocyte Esterase (Negative) Influenza Type A (PCR) Not Detected (Not Detectd) Influenza Type B (PCR) Not Detected (Not Detectd) RSV (PCR) Not Detected (Not Detectd) SARS-CoV-2 (PCR) Not Detected (Not Detectd) Disposition Clinical Impression: Diverticulitis Narrative: Please return to the Emergency Department if symptoms worsen or any other concerns. Follow-up with your primary care provider as scheduled on 11 February to ensure resolution of symptoms. Full course of both antibiotics as prescribed. Return to the emergency department if abdominal pain worsens develops fevers, becomes nauseous. Disposition: HOME SELF-CARE Condition: Good Prescriptions: Amoxic-Pot Clav 875-125Mg [Augmentin 875-125] 1 tab PO Q12HR #10 tab metroNIDAZOLE [Flagyl] 500 mg PO TID #15 tab Is patient prescribed a controlled substance at d/c from ED?: No Referrals: Rowena Alaniz PAC [REFERRING] - 1-2 days Time of Disposition: 20:24
[2024-01-29] MEDS: SODIUM CHLORIDE 0.9% 1,000 ML IV STA (18:14)
[2024-01-29 18:37] LABS: Basophils # (A) 0.1 k/uL (0-0.2); Basophils % (A) 1 %; Eosinophils # (A) 0.2 k/uL (0-0.7); Eosinophils % (A) 2 %; HCT 51.8 % (39.0-53.0); HGB 16.6 gm/dL (13.0-17.5); Lymphocytes # (A) 1.2 k/uL (1.0-4.8); Lymphocytes % (A) 15 %; MCH 30.7 pg (25.0-35.0); Mean Platelet Volume 8.5; Monocytes # (A) 0.8 k/uL (0-1.0); Monocytes % (A) 11 %; Neutrophils # (A) 5.3 k/uL (1.3-7.7); Neutrophils % (A) 67 %; Platelet Count 172 k/uL (150-450); RDW 13.1 % (11.5-15.5); WBC 7.8 k/uL (3.8-10.6)
[2024-01-29 19:01] LABS: Appearance,Urine Clear (Clear); Bilirubin,Urine Negative (Negative); Blood,Urine Negative (Negative); Color,Urine Yellow; Glucose,Urine (UA) Negative (Negative); Ketones,Urine Negative (Negative); Leukocyte Esterase,Urine Negative (Negative); Nitrite,Urine Negative (Negative); PH, Urine 5.5 (5.0-8.0); Protein,Urine Trace (Negative); Specific Gravity,Urine 1.028 (1.001-1.035); Urobilinogen,Urine <2.0 mg/dL (<2.0)
[2024-01-29 19:06] LABS: INR 1.2 (<1.2); Partial Thromboplastin Time 25.1 sec (22.0-30.0); Prothrombin Time 12.3 sec (10.0-12.5)
[2024-01-29 19:15] LABS: ALT 13 U/L (4-49); AST 20 U/L (17-59); African American GFR (CKD) >90 (>60 ml/min/1.73 sqM); Albumin 3.3 g/dL (3.5-5.0); Alkaline Phosphatase 50 U/L (38-126); Amylase 43 U/L (30-110); Anion Gap 5 mmol/L; Blood Urea Nitrogen 21 mg/dL (9-20); Calcium 8.1 mg/dL (8.4-10.2); Carbon Dioxide 27 mmol/L (22-30); Chloride 108 mmol/L (98-107); Glucose 104 mg/dL (74-99); Lipase 59 U/L (23-300); Magnesium 1.8 mg/dL (1.6-2.3); Non-African American GFR(CKD) 87 (>60 ml/min/1.73 sqM); Potassium 3.7 mmol/L (3.5-5.1); Sodium 140 mmol/L (137-145); Total Bilirubin 0.7 mg/dL (0.2-1.3)
--- NOTE | 2024-01-29 20:09 | CT ---
EXAMINATION TYPE: CT abdomen pelvis w con Date Of Exam: 01/29/2024 History: left side pain Contrast: CT scan of the abdomen and pelvis is performed with oral and with IV Contrast, patient inje cted with 100 ml mL of Isovue 300.CT DLP: 1401.2 mGycm, Automated Exposure Control for Dose Reduction was Utilized. Comparison: None Findings: LUNG BASES: No acute lung base/pleural space process. Coronary cusp spaces are noted, in addition to mild nonspecific circumferential esophageal mural thickening. LIVER/GB: No significant abnormality. PANCREAS: Parenchyma and ductal anatomy unremarkable. SPLEEN: No splenomegaly or focal lesion. ADRENALS: No nodules. KIDNEYS: No significant abnormality. BOWEL: There is sigmoid and descending colon diverticulosis and, in addition, distalmost descending c olon shows circumferential mural thickening and prominent indistinctness with reticulation of the sup porting mesocolon. No abnormal fluid or gas collection. There is no bowel dilation. Colonic stool vol ume within normal limits. PELVIC VISCERA: No gross abnormality. LYMPH NODES: No greater than 1cm abdominal or pelvic lymph nodes are appreciated. VASCULATURE: No acute findings. Nonaneurysmal atherosclerotic changes are seen throughout the visuali zed arterial anatomy, including the coronary arteries. Retroaortic left renal vein incidentally noted . OSSEOUS STRUCTURES: No focal aggressive lesion. IMPRESSION: Mild-moderate diverticulitis involving the distalmost descending colon. If not recently obtained, a v entral follow-up colonoscopy can be used to assure normal underlying mucosa.
[2024-01-29] MEDS: MORPHINE SULFATE 2 MG/ML SYRINGE IVP ONE (20:32)
[2024-01-29 21:05] VITALS: BP 144/82; PULSE 50; RESP 18; TEMP 98.2
== END 2024-01-29 20:39 | disposition home or self-care (01) ==
LOC: EC 17:26
DX: K57.92 Diverticulitis of intestine, part unspecified, without perforation or abscess without bleeding (principal); Z87.891 Personal history of nicotine dependence; Z11.52 Encounter for screening for COVID-19
CPT/HCPCS: 36415; 80053; 82150; 83605; 83690; 83735; 85025; 85610; 85730; 81003; 87636; 74177; 99284; 96360; Q9967

== ENCOUNTER → 2024-05-19 | Outpatient (CLI) | payer MEDICARE ==
[2024-05-19 14:56] LABS: African American GFR (CKD) >90 (>60 ml/min/1.73 sqM); Blood Urea Nitrogen 16 mg/dL (9-20); Non-African American GFR(CKD) >90 (>60 ml/min/1.73 sqM)
--- NOTE | 2024-05-19 17:09 | CT ---
EXAMINATION TYPE: CT chest w con CT DLP: 648.5 mGycm, Automated exposure control for dose reduction was used. DATE OF EXAM: 05/19/2024 3:13 PM COMPARISON: Chest CT 11/13/2023. CLINICAL INDICATION:Male, 73 years old with history of R91.1 SOLITARY PULMONARY NODULE; PHH, Lung nod ule, hx of PE, COPD. TECHNIQUE: Multiple axial images were obtained through the chest. Sagittal and coronal reformats were created for review. Contrast used:100 ml mL of Isovue 300 with IV Contrast (None if empty) Oral contrast used: (None if empty) FINDINGS: LUNGS/ PLEURA: Moderately pronounced emphysema is present in the upper lobes. Stranding and elonga gabriella almost nodular type appearance is seen in the left fissure likely representing entrapped fluid. Estimate of size is 13 mm CC. Previously largest nodular component measured 22 mm. It has been gett ing smaller in the prior exam from October. AIRWAY: Patent and unremarkable. HEART: Size within normal limits. Moderate calcific coronary artery atherosclerosis. MEDIASTINUM: No gross evidence of adenopathy. VASCULATURE: No aortic aneurysm. MUSCULOSKELETAL: No acute osseous abnormalities SOFT TISSUES/LYMPH NODES: Unremarkable. LOWER NECK: No significant findings. UPPER ABDOMEN: No significant findings. IMPRESSION: Emphysema. Stranding and elongated almost nodular type appearance is seen in the left fissure likely representin g entrapped fluid. Estimate of size is 13 mm CC. Previously largest nodular component measured 22 mm. It has been getting smaller in the prior exam from October. Follow up recommendations for incidental pulmonary nodules, if there are any, are per [employer] or [employer]. https://radiopaedia.org/articles/ybvibjoqxo-lxkfmij-pzkjxrumz-yncoii-ijstomuwgdqiwen-[email or web address]?lang=us
== END | disposition home or self-care (01) ==
LOC: RADCTMAIN 13:53
PROVIDERS: ATTEND Internal Medicine Critical Care Medicine
DX: R91.1 Solitary pulmonary nodule (principal); J43.9 Emphysema, unspecified; J44.9 Chronic obstructive pulmonary disease, unspecified; Z86.711 Personal history of pulmonary embolism
CPT/HCPCS: 82565; 84520; 71260; 36415; Q9967